=== PATIENT | male | born 1940 | race Hispanic/Latino ===

== ENCOUNTER → 2017-10-16 | Outpatient (CLI) | payer MEDICARE | END | disposition home or self-care (01) | LOC: SHCH 09:41 | PROVIDERS: ATTEND Internal Medicine Cardiovascular Disease | DX: I65.23 Occlusion and stenosis of bilateral carotid arteries (principal) | CPT/HCPCS: 93880 ==

== ENCOUNTER → 2019-04-21 | Outpatient (CLI) | payer MEDICARE | END | disposition home or self-care (01) | LOC: RAH 11:43 | PROVIDERS: ATTEND Family Medicine | DX: R06.02 Shortness of breath (principal) | CPT/HCPCS: 71046 ==

== ENCOUNTER → 2019-07-01 | Outpatient (CLI) | payer MEDICARE | END | disposition home or self-care (01) | LOC: SHCH 12:16 | PROVIDERS: ATTEND Internal Medicine Cardiovascular Disease | DX: I25.10 Atherosclerotic heart disease of native coronary artery without angina pectoris (principal); I10 Essential (primary) hypertension | CPT/HCPCS: 93306; 93356 ==

== ENCOUNTER → 2019-07-02 | Outpatient (CLI) | payer MEDICARE | END | disposition home or self-care (01) | LOC: SHCH 10:46 | PROVIDERS: ATTEND Internal Medicine Cardiovascular Disease | DX: I25.10 Atherosclerotic heart disease of native coronary artery without angina pectoris (principal) | CPT/HCPCS: 93880 ==

== ENCOUNTER 2022-01-31 08:42 | Day surgery (SDC) | payer MEDICARE ==
[2022-01-27 12:45] LABS: APPEARANCE,URINE CLEAR (CLEAR); BILIRUBIN,URINE NEGATIVE (NEGATIVE); COLOR,URINE YELLOW (YELLOW); GLUCOSE, URINE (UA) NEGATIVE (NEGATIVE); INR 1.08 (0.85-1.15); KETONES,URINE NEGATIVE (NEGATIVE); LEUKOCYTE ESTERASE ,URINE NEGATIVE Leu/uL (NEGATIVE); NITRATE,URINE NEGATIVE (NEGATIVE); OCCULT BLOOD,URINE NEGATIVE (NEGATIVE); PH,URINE 5.5 (5.0-8.0); PROTEIN,URINE 10 mg/dL (NEGATIVE); PROTHROMBIN TIME 11.7 SEC (9.6-11.6); UROBILINOGEN,URINE 3 mg/dL (0.2-1.0)
[2022-01-27 12:46] LABS: PARTIAL THROMBOPLASTIN TIME 28.3 SEC (26.3-35.5)
[2022-01-27 12:48] LABS: POTASSIUM 4.5 mmol/L (3.5-5.1)
[2022-01-27 12:53] LABS: B-TYPE NATRIURETIC PEPTIDE 5 pg/mL (0-100)
[2022-01-27 12:56] LABS: BASOPHILS % (AUTO) 0.6 % (0.0-5.0); LYMPHOCYTES % (AUTO) 19.8 % (21.0-51.0); MEAN CORPUSCULAR HEMOGLOBIN 30.2 pg (27.0-33.0); MEAN CORPUSCULAR HGB CONC 33.4 g/dL (32.0-36.0); MEAN CORPUSCULAR VOLUME 90.3 fL (79-99); MONOCYTES % (AUTO) 10.9 % (3.0-13.0); NEUTROPHILS % (AUTO) 65.5 % (40.0-77.0); PLATELET COUNT (AUTO) 241 K/uL (130-400); RED BLOOD CELL COUNT(AUTO) 4.87 MIL/uL (4.50-6.20); RED CELL DISTRIBUTION WIDTH 13.9 % (11.0-15.5); WHITE BLOOD COUNT (AUTO) 5.1 K/uL (4.8-10.8)
[2022-01-27 12:57] LABS: MUCUS,URINE RARE LPF (None Seen); RBC,URINE 0-1 /HPF (0-1); SQUAMOUS EPITHELIAL CELL,UR RARE /HPF (0-2); WBC,URINE 0-1 /HPF (0-1)
[2022-01-30 10:42] VITALS: BP 140/83
[2022-01-31] VITALS (11 sets, daily range): BP systolic 84–149; BP diastolic 52–83
[~2022-01-31] VITALS: Ht 165.1 cm; Wt 57.6 kg
[~2022-01-31 08:42] MED LIST: AEC81 PO; ATOR40TA69 PO; CARV12.511 PO; CLOP75TA32 PO; LEVO50TA11 PO; OMEP40CA21 PO
[2022-01-31] MEDS ORDERED: 0.9%NACL 1000ML 1,000 ML IV ONE (09:23)
[2022-01-31] MEDS ORDERED: IOHEXOL-350 50ML VIAL IV ONE (11:17)
[2022-01-31] MEDS ORDERED: SODIUM BICARB 50MEQ 50ML VIAL 50 ML ONE (11:17)
[2022-01-31] MEDS ORDERED: IOHEXOL 350 MG/ML 100ML INFUS..BTL IV ONE (11:17)
[2022-01-31] MEDS ORDERED: HEPARIN 10,000 UNIT/10ML (1,000 UNIT/ML) VIAL ONE (11:17)
[2022-01-31] MEDS ORDERED: LIDOCAINE HCL 400MG/20ML VIAL ONE (11:18)
[2022-01-31] MEDS ORDERED: NITROGLYCERIN 50MG VIAL ONE (11:18)
[2022-01-31] MEDS ORDERED: NICARDIPINE 25MG INJ IV ONE (12:20)
[2022-01-31] MEDS ORDERED: MEPERIDINE-PF 25 MG/ML SYG ONE (12:22)
[2022-01-31] MEDS ORDERED: MIDAZOLAM HCL 1 MG/ML 2ML VIAL ONE (12:22)
[2022-01-31] MEDS: 0.9%NACL 1000ML 1,000 ML IV SCH ×2 (13:24→16:58)
== END 2022-01-31 16:45 | disposition home or self-care (01) ==
LOC: DAH 08:42
PROVIDERS: ATTEND Internal Medicine Cardiovascular Disease
DX: I25.119 Atherosclerotic heart disease of native coronary artery with unspecified angina pectoris (principal); T82.855A Stenosis of coronary artery stent, initial encounter; K21.9 Gastro-esophageal reflux disease without esophagitis; I25.2 Old myocardial infarction; Z79.01 Long term (current) use of anticoagulants; Z79.899 Other long term (current) drug therapy; Z79.82 Long term (current) use of aspirin; Z79.890 Hormone replacement therapy; Z98.890 Other specified postprocedural states; Z95.5 Presence of coronary angioplasty implant and graft; Y83.9 Surgical procedure, unspecified as the cause of abnormal reaction of the patient, or of later complication, without mention of misadventure at the time of the procedure; Y92.89 Other specified places as the place of occurrence of the external cause
CPT/HCPCS: 80048; 83880; 85025; 85610; 85730; 81001; 36415; 71045; 93005; 93458; C1769; C1894; J3490 ×4; J7030; J1644 ×2; J2250; J2175; Q9967; A4215; A4222; A4221; A4663; A4216; A4606; Q9965; A4223 ×3; 99156; 99157